=== PATIENT | male | born 1940 | race Native Hawaiian/Other Pacific Islander ===

== ENCOUNTER 2017-01-30 18:02 | Emergency (ER) | payer OTHER, BC ==
[~2017-01-30] VITALS: Ht 177.8 cm; Wt 90.7 kg
[2017-01-30 18:48] VITALS: BP 189/85; TEMP 98.4
== END 2017-01-30 18:49 | disposition home or self-care (01) ==
LOC: ED 18:02
DX: Z09 Encounter for follow-up examination after completed treatment for conditions other than malignant neoplasm (principal)

== ENCOUNTER 2017-02-11 13:31 | Emergency (ER) | payer OTHER, BC ==
[~2017-02-11] VITALS: Ht 175.3 cm; Wt 90.7 kg
[2017-02-11 13:35] VITALS: TEMP 98
[2017-02-11 14:35] VITALS: BP 170/88
== END 2017-02-11 14:38 | disposition home or self-care (01) ==
LOC: ED 13:31
DX: Z48.02 Encounter for removal of sutures (principal)

== ENCOUNTER 2017-02-13 20:09 | Observation (INO) | payer OTHER, BC ==
[~2017-02-13] VITALS: Ht 175.3 cm; Wt 93.0 kg
[2017-02-13 20:15] VITALS: BP 210/95; TEMP 97.9
[2017-02-13] MEDS ORDERED: QUINAPRIL10 MG OR (20:24)
[2017-02-13] MEDS ORDERED: CITALOPRAM20 MG PO (20:25)
[2017-02-13] MEDS ORDERED: ATEN25TA21 PO (20:26)
[2017-02-13] MEDS ORDERED: ASPIR-LOW81 MG OR (20:26)
[2017-02-13] MEDS ORDERED: LIPITOR10 MG PO (20:26)
[2017-02-13] MEDS ORDERED: DIAZEPAM5 MG/M2 PO (20:27)
[2017-02-13] MEDS ORDERED: HYDR5TAB9 PO (20:28)
[2017-02-13 21:30] LABS: PLATELET COUNT 336 K/uL (142-355)
[2017-02-13 21:37] LABS: POTASSIUM 4.2 mmol/L (3.6-5.2)
[2017-02-13 21:50] VITALS: BP 202/91
[2017-02-13 22:00] VITALS: BP 202/97
[2017-02-13 22:15] VITALS: BP 189/98
[2017-02-13 23:15] VITALS: BP 154/97
[2017-02-14] VITALS (16 sets, daily range): BP systolic 84–183; BP diastolic 59–97; TEMP 97.5–98.8; Ht 175.3 cm; Wt 93.0 kg
--- NOTE | 2017-02-14 04:03 | NUR ---
02/14/17 0130 TO ROOM 1129 DX GI BLEED,HX POLPYS.20 GAUDGE TO LEFT WRSIT.PT INSTRUCTED TO BE NPO FOR PROCEDURE IN AM CONSENT SIGNED.CALL LIGHT WITHIN REACH.CC
[2017-02-14 05:29] LABS: PLATELET COUNT 334 K/uL (142-355)
--- NOTE | 2017-02-14 06:04 | NUR ---
02/14/17 0600 ASSISTED TO BEDSIDE COMMODE PT HAD WATERY BLOODY STOOL DARK RED IN COLOR.PT SAID HE HAS ALREADY HAD 2 SINCE BEING IN ROOM TOLD THEM TO LET US KNOW WHEN HE HAS A BOWEL MOVEMENT SO WE CAN SEE IT.CC
[2017-02-14 12:31] LABS: PLATELET COUNT 279 K/uL (142-355)
[2017-02-14 15:02] LABS: POTASSIUM 3.9 mmol/L (3.6-5.2)
[2017-02-14 18:37] LABS: PLATELET COUNT 278 K/uL (142-355)
--- NOTE | 2017-02-14 20:15 | NUR ---
1000 TO OR FOR ENDOSCOPY PROCEDURE. 1155 RETURNED TO OR FROM ENDOSCOPY PROCEDURE. RECEIVED TO ROOM 1129. REPORT RECEIVED FROM ANIVAL COTTON CRNA. ALERT AND ORIENTED. NO SOB. TALKING. FAMILY AT BEDSIDE. POST-SURGICAL VITAL SIGNS STARTED.
[2017-02-15] VITALS: BP 159/71; TEMP 98.2
[2017-02-15 04:00] VITALS: BP 188/76; TEMP 98.4
--- NOTE | 2017-02-15 08:07 | NUR ---
@ 0735 PT DECIDED TO LEAVE AMA, HE STATED "I DON'T WANT TO WAIT Friday IN THE HOSPITAL, I CAN TAKE CARE OF THIS AT HOME. IF I NEED ANYTHING, I WILL CALL BACK UP HERE AND TALK TO DR AGUAYO." HE GOT HIMSELF DRESSED AND THREATENED TO TAKE HIS IV OUT IF WE DIDN'T DO IT RIGHT THEN. IV D/C'D TIP INTACT, NO REDNESS/EDEMA/PAIN TO SITE, CLEAN DRY DRESSING APPLIED AND SECURED WITH PAPER TAPE. DR AGUAYO TALKED TO PATIENT AND TRIED TO CONVINCE HIM TO STAY, BUT THE ULTIMATE DECISION WAS THE PATIENT'S. PT AMBULATED ACCOMPANIED BY HIS SPOUSE TO HIS PRIVATE VEHICLE, AND HOME. BEFORE PT LEFT, WE ASKED HIM WHAT HAPPENED THAT MADE HIM WANT TO LEAVE AND HE JUST SAID HE DIDN'T WANT TO STAY IN THE HOSPITAL Friday. NOTHING ELSE HAPPENED.
[2017-02-15 08:59] LABS: POTASSIUM 3.6 mmol/L (3.6-5.2); SODIUM 138 mmol/L (136-145)
== END 2017-02-15 07:45 | disposition left against medical advice (07) ==
LOC: ED 20:09 → MED/SURG 23:14
PROVIDERS: Emergency Medicine; ADMIT Specialist
PROC: 0DJ08ZZ Inspection of Upper Intestinal Tract, Via Natural or Artificial Opening Endoscopic (ICD-10-PCS; principal; 2017-02-14)
PROC: 30233N1 Transfusion of Nonautologous Red Blood Cells into Peripheral Vein, Percutaneous Approach (ICD-10-PCS; 2017-02-15)
DX: K92.2 Gastrointestinal hemorrhage, unspecified (principal); K92.1 Melena; I10 Essential (primary) hypertension; F41.8 Other specified anxiety disorders; Z48.02 Encounter for removal of sutures
CPT/HCPCS: 36415; 36430; 80048; 80053; 82272; 83735; 85027; 85610; 85730; 86850; 86900; 86901; 86922; 96360; 96365; 96366; 96375; 96376; 99220; 99284; G0378; J2001; J2704; J2780; J3010; J3490; P9016

== ENCOUNTER 2018-02-16 07:30 | Day surgery (SDC) | payer OTHER, BC ==
[~2018-02-16 07:30] MED LIST: ASPIR-LOW81 MG OR; ATEN25TA21 PO; CITALOPRAM20 MG PO; DIAZEPAM5 MG/M2 PO; HYDR5TAB9 PO; LIPITOR10 MG PO; QUINAPRIL10 MG OR
== END 2018-02-16 09:48 | disposition home or self-care (01) ==
LOC: OR 07:30
PROC: 08RK3JZ Replacement of Left Lens with Synthetic Substitute, Percutaneous Approach (ICD-10-PCS; principal; 2018-02-16)
DX: H25.812 Combined forms of age-related cataract, left eye (principal)
CPT/HCPCS: 66984; J0171; V2632

== ENCOUNTER 2019-01-04 13:07 | Emergency (ER) | payer OTHER, BC ==
[~2019-01-04] VITALS: Ht 172.7 cm; Wt 74.4 kg
[2019-01-04 13:50] VITALS: TEMP 97.5
[2019-01-04 17:10] VITALS: BP 121/77
== END 2019-01-04 17:10 | disposition home or self-care (01) ==
LOC: ED 13:07
DX: M54.5 Low back pain (principal)
CPT/HCPCS: 99283

== ENCOUNTER 2019-01-25 08:58 | Emergency (ER) | payer OTHER, BC ==
[~2019-01-25] VITALS: Ht 172.7 cm; Wt 72.6 kg
[2019-01-25 09:31] VITALS: BP 168/62; TEMP 98.5
== END 2019-01-25 09:50 | disposition home or self-care (01) ==
LOC: ED 08:58
DX: M54.5 Low back pain (principal); M79.18 Myalgia, other site
CPT/HCPCS: 99281

== ENCOUNTER 2021-03-24 09:58 | Emergency (ER) | payer OTHER, BC ==
[~2021-03-24] VITALS: Ht 172.7 cm; Wt 72.6 kg
[2021-03-24 10:45] LABS: PLATELET COUNT 447 K/uL (142-355)
[2021-03-24 10:49] LABS: POTASSIUM 3.8 mmol/L (3.6-5.2)
[2021-03-24 10:57] LABS: PARTIAL THROMBOPLASTIN TIME 26.7 SECONDS (24.5-33.6)
[2021-03-24 12:10] VITALS: TEMP 210
[2021-03-24 15:30] VITALS: BP 144/86
== END 2021-03-24 15:30 ==
LOC: ED 09:58
PROVIDERS: Emergency Medicine
DX: I21.4 Non-ST elevation (NSTEMI) myocardial infarction (principal); N17.9 Acute kidney failure, unspecified; E86.0 Dehydration; M62.82 Rhabdomyolysis; R41.0 Disorientation, unspecified; Z11.52 Encounter for screening for COVID-19
CPT/HCPCS: 80053; 80320; 82550; 83880; 84484; 85027; 85610; 85730; 87635; 93005; 96360; 96361; 96365; 96375; 99284; J1644; U0003

== ENCOUNTER 2021-09-14 02:09 | Emergency (ER) | payer OTHER, BC ==
[~2021-09-14] VITALS: Ht 175.3 cm; Wt 73.9 kg
[~2021-09-14 02:09] MED LIST changes: +ATEN50TA36 PO; +CITALOPRAM40 MG PO; +FLUOXETINE20 MG PO; +LIPITOR20 MG PO; +MEMANTINE HYDRO10 MG PO; +ONDANSETRON HYDR4 MG PO; +QUETIAPINE25 MG PO; -QUINAPRIL10 MG OR; +QUINAPRIL10 MG PO; +TRAZODONE HYDR100 MG PO
[2021-09-14 02:34] LABS: PLATELET COUNT 288 K/uL (142-355)
[2021-09-14 02:45] LABS: POTASSIUM 3.3 mmol/L (3.6-5.2)
[2021-09-14 02:52] LABS: PARTIAL THROMBOPLASTIN TIME 28.9 SECONDS (24.5-33.6)
[2021-09-14 04:10] VITALS: BP 147/98; TEMP 97.8
== END 2021-09-14 04:15 | disposition home or self-care (01) ==
LOC: ED 02:09
PROVIDERS: Emergency Medicine
DX: F10.129 Alcohol abuse with intoxication, unspecified (principal); Y90.2 Blood alcohol level of 40-59 mg/100 ml; F41.0 Panic disorder [episodic paroxysmal anxiety]; I10 Essential (primary) hypertension; E87.6 Hypokalemia; Z79.899 Other long term (current) drug therapy; Z51.81 Encounter for therapeutic drug level monitoring; R60.0 Localized edema
CPT/HCPCS: 36415; 80053; 80320; 82550; 83880; 84484; 85027; 85610; 85730; 93005; 96365; 96368; 96375; 99284; J3411; J3475; J3490

== ENCOUNTER 2021-09-16 04:05 | Emergency (ER) | payer OTHER, BC | END 2021-09-16 04:32 | disposition home or self-care (01) | LOC: ED 04:05 | DX: Z53.21 Procedure and treatment not carried out due to patient leaving prior to being seen by health care provider (principal) | CPT/HCPCS: 99281 ==

== ENCOUNTER 2021-09-19 12:24 | Emergency (ER) | payer OTHER, BC ==
[~2021-09-19] VITALS: Ht 175.3 cm; Wt 73.9 kg
[2021-09-19 12:24] VITALS: TEMP 97.8
[2021-09-19 12:44] LABS: PLATELET COUNT 334 K/uL (142-355)
[2021-09-19 13:15] VITALS: BP 116/71
[2021-09-19 13:18] LABS: PARTIAL THROMBOPLASTIN TIME 28.8 SECONDS (24.5-33.6)
== END 2021-09-19 13:23 | disposition home or self-care (01) ==
LOC: ED 12:24
PROVIDERS: Hospitalist
DX: E86.0 Dehydration (principal); F41.1 Generalized anxiety disorder; Z79.899 Other long term (current) drug therapy; Z51.81 Encounter for therapeutic drug level monitoring
CPT/HCPCS: 80053; 80320; 82550; 83880; 84484; 85027; 85610; 85730; 93005; 96365; 99283

== ENCOUNTER 2021-09-29 08:40 | Emergency (ER) | payer OTHER, BC ==
[~2021-09-29] VITALS: Ht 175.3 cm; Wt 73.9 kg
[2021-09-29 08:45] VITALS: TEMP 97.8
[2021-09-29 09:19] LABS: PLATELET COUNT 326 K/uL (142-355)
[2021-09-29 09:29] LABS: POTASSIUM 3.7 mmol/L (3.6-5.2)
[2021-09-29 09:36] LABS: PARTIAL THROMBOPLASTIN TIME 27.8 SECONDS (24.5-33.6)
[2021-09-29 09:54] VITALS: BP 193/99
== END 2021-09-29 09:54 | disposition home or self-care (01) ==
LOC: ED 08:40
PROVIDERS: Emergency Medicine
DX: F10.129 Alcohol abuse with intoxication, unspecified (principal); Y90.1 Blood alcohol level of 20-39 mg/100 ml; S00.83XA Contusion of other part of head, initial encounter; I10 Essential (primary) hypertension; Z91.19 Patient's noncompliance with other medical treatment and regimen; F17.220 Nicotine dependence, chewing tobacco, uncomplicated; W18.39XA Other fall on same level, initial encounter; Y92.481 Parking lot as the place of occurrence of the external cause
CPT/HCPCS: 80053; 80320; 85027; 85610; 85730; 96372; 99283; J0360

== ENCOUNTER → 2021-09-29 | Emergency (ER) | payer OTHER, BC ==
[~2021-09-29] VITALS: Ht 172.7 cm; Wt 72.6 kg
[2021-09-29 11:01] VITALS: BP 141/67; TEMP 97.9
== END ==
LOC: ED 11:18
DX: F10.129 Alcohol abuse with intoxication, unspecified (principal); R45.0 Nervousness; Z53.29 Procedure and treatment not carried out because of patient's decision for other reasons
CPT/HCPCS: 99282

== ENCOUNTER 2022-01-06 11:23 | Observation (INO) | payer OTHER, BC ==
[2022-01-06] VITALS (7 sets, daily range): BP systolic 137–196; BP diastolic 74–88; TEMP 97.4–98.7; Ht 175.3 cm; Wt 69.1 kg
[~2022-01-06] VITALS: Ht 175.3 cm; Wt 69.1 kg
[2022-01-06 12:19] LABS: PLATELET COUNT 309 K/uL (142-355)
[2022-01-06 12:27] LABS: POTASSIUM 4.4 mmol/L (3.6-5.2)
[2022-01-06 12:29] LABS: PARTIAL THROMBOPLASTIN TIME 28.5 SECONDS (24.5-33.6)
[2022-01-07] VITALS: BP 201/111; TEMP 97.1
[2022-01-07 04:00] VITALS: BP 134/49; TEMP 97.4
[2022-01-07 05:13] LABS: PLATELET COUNT 283 K/uL (142-355)
[2022-01-07 05:21] LABS: POTASSIUM 4.6 mmol/L (3.6-5.2)
[2022-01-07 08:00] VITALS: BP 191/83; TEMP 97.7
[2022-01-07 08:50] VITALS: BP 179/81
[2022-01-07 10:00] VITALS: BP 189/73
[2022-01-07] MEDS ORDERED: ATEN50TA36 PO (10:37)
[2022-01-07] MEDS ORDERED: CLIN300C PO (10:37)
[2022-01-07] MEDS ORDERED: QUET25TA2 PO (10:38)
[2022-01-07] MEDS ORDERED: HYDR25TA60 PO (10:39)
[2022-01-07 11:24] VITALS: BP 111/63
== END 2022-01-07 12:25 | disposition other institution (70) ==
LOC: ED 11:23 → MED/SURG 13:11
PROVIDERS: Family Medicine; ADMIT Internal Medicine; ATTEND Internal Medicine
DX: G92.8 Other toxic encephalopathy (principal); L03.211 Cellulitis of face; E78.49 Other hyperlipidemia; E86.0 Dehydration; F03.90 Unspecified dementia, unspecified severity, without behavioral disturbance, psychotic disturbance, mood disturbance, and anxiety; F15.188 Other stimulant abuse with other stimulant-induced disorder; R53.1 Weakness; Z91.81 History of falling; Z79.899 Other long term (current) drug therapy; Z51.81 Encounter for therapeutic drug level monitoring
CPT/HCPCS: 36415; 80053; 80307; 81002; 82550; 83605; 83735; 84100; 84484; 85027; 85379; 85610; 85730; 87040; 87502; 87635; 93005; 96360; 99220; 99284; G0378; J3490; U0003